=== PATIENT | female | born 1950 ===

== ENCOUNTER 2018-03-24 07:45 | Outpatient (CLI) | payer OTHER ==
[2018-03-24] MEDS ORDERED: SYNTHROID200 MCG PO ×2 (09:21→09:26)
[2018-03-24] MEDS ORDERED: LISINOPRIL20 MG PO (09:21)
[2018-03-24] MEDS ORDERED: GABAPENTIN800 MG PO (09:22)
[2018-03-24] MEDS ORDERED: CLONAZEPAM0.5 MG PO (09:22)
[2018-03-24] MEDS ORDERED: CATAFLAN PO (09:23)
[2018-03-24] MEDS ORDERED: ASPIR 8181 MG PO (09:26)
[2018-03-24] MEDS ORDERED: ZOCOR20 MG PO (09:27)
[2018-03-24] MEDS ORDERED: OMEPRAZOLE20 M1 PO (09:27)
[2018-03-24] MEDS ORDERED: NEPHRONEX-SL T1 EACH PO (09:27)
[2018-03-24] MEDS ORDERED: PERPHENAZINE2 MG PO (09:28)
== END 2018-03-24 08:47 | disposition home or self-care (01) ==
LOC: LAB 07:45
DX: I10 Essential (primary) hypertension (principal)

== ENCOUNTER 2018-03-31 05:50 | Day surgery (SDC) | payer OTHER ==
[~2018-03-31 05:50] MED LIST: ASPIR 8181 MG PO; CATAFLAN PO; CLONAZEPAM0.5 MG PO; GABAPENTIN800 MG PO; LISINOPRIL20 MG PO; NEPHRONEX-SL T1 EACH PO; OMEPRAZOLE20 M1 PO; PERPHENAZINE2 MG PO; SYNTHROID200 MCG PO; ZOCOR20 MG PO
== END 2018-03-31 12:40 | disposition home or self-care (01) ==
LOC: CIR.AMB 05:50
DX: M75.121 Complete rotator cuff tear or rupture of right shoulder, not specified as traumatic (principal)

== ENCOUNTER 2018-05-11 11:08 | Emergency (ER) | payer OTHER ==
[~2018-05-11] VITALS: Ht 157.5 cm; Wt 77.6 kg
== END 2018-05-11 15:50 | disposition home or self-care (01) ==
LOC: ER 11:08
DX: S00.03XA Contusion of scalp, initial encounter (principal); S90.01XA Contusion of right ankle, initial encounter; S20.211A Contusion of right front wall of thorax, initial encounter; S40.011A Contusion of right shoulder, initial encounter; S60.221A Contusion of right hand, initial encounter; W18.09XA Striking against other object with subsequent fall, initial encounter; Y93.89 Activity, other specified; Y92.414 Local residential or business street as the place of occurrence of the external cause; Y99.8 Other external cause status

== ENCOUNTER → 2020-12-20 07:00 | Outpatient (CLI) | payer OTHER | END | disposition home or self-care (01) | LOC: LAB 07:00 | PROVIDERS: ATTEND Internal Medicine Hematology & Oncology | DX: R23.3 Spontaneous ecchymoses (principal); E03.8 Other specified hypothyroidism; I10 Essential (primary) hypertension; I67.82 Cerebral ischemia ==